=== PATIENT | female | born 1965 | race Caucasian/White ===

== ENCOUNTER 2016-03-19 12:14 | Emergency (ER) | payer MEDICAID ==
[~2016-03-19] VITALS: Wt 78.0 kg
[~2016-03-19 12:14] MED LIST: ALBU18HF INHALATION; FLUT16SP17 NASAL; NAPR-260 PO
[2016-03-19] MEDS ORDERED: predniSONE 20 MG TAB PO STA (14:17)
[2016-03-19] MEDS ORDERED: IPRATROPIUM (NEB) 0.5 MG/2.5 ML AMP INH STA (14:17)
[2016-03-19] MEDS ORDERED: ALBUTEROL 0.5% (NEB) 2.5 MG/0.5 ML AMP INH STA (14:17)
[2016-03-19] MEDS ORDERED: KETOROLAC 30 MG INJ IM STA (14:17)
--- NOTE | 2016-03-19 14:45 | RADRPT ---
PROCEDURE: XR Chest. CLINICAL INDICATION: Asthma exacerbation. TECHNIQUE: AP view of the chest was obtained. COMPARISON: None available FINDINGS: The cardiomediastinal silhouette is within normal limits. The lungs are clear. There are 3 mm nodule s in the left upper lung zone and left mid lung zone, incompletely evaluated. No signs of pleural f luid or pneumothorax are seen. The osseous structures and soft tissues are unremarkable. IMPRESSION: 1. No evidence for active cardiopulmonary disease. 2. 3 mm nodules in the left upper lung zone and left mid lung zone, which are incompletely evaluate d. CT may be helpful for further evaluation. RPTAT: DD .Aayush Menon MD, MD Date Time Electronically viewed and signed by .Aayush Menon MD, on 03/19/2016 14:45 .S/
[2016-03-19] MEDS ORDERED: ALBU8.5H3 INH (15:19)
[2016-03-19] MEDS ORDERED: PRED20TA PO (15:19)
--- NOTE | 2016-03-19 15:23 | ERD ---
ER Documentation Chief Complaint Date/Time DATE: 03/19/16 TIME: 15:20 Chief Complaint COUGH CONGESTION FOR THE PAST FEW DAYS HPI 50-year-old woman presents with cough, congestion, and wheezing. She also has right lateral chest wall pain with cough which is nonradiating and nonexertional. She does have a history of asthma and has been using her albuterol without relief. She denies calf or leg swelling, no fevers or chills , no chest pain, no rash, no vomiting or diarrhea. ROS All systems reviewed and are negative except as per history of present illness. Medications Home Meds Active Scripts Prednisone* (Prednisone*) 20 Mg Tab, 40 MG PO DAILY for 4 Days, TAB Prov:CELINA CARLOS MD 03/19/16 Albuterol Sulfate* (Proair HFA*) 8.5 Gm Hfa.aer.ad, 2 PUFF INH Q6H Y for WHEEZING AND SOB, #1 INHALER Prov:CELINA CARLOS MD 03/19/16 Naproxen* (Naprosyn*) 500 Mg Tablet, 500 MG PO BID Y for PAIN AND/OR INFLAMMATION, #30 TAB Prov:AUDIE MCMANUS PA-C 12/20/15 Fluticasone Propionate* (Fluticasone Propionate* Nasal) 50 Mcg/[place] - 16 Gm [place].susp, 1 SPRAY NASAL DAILY, #1 BOTTLE TO EACH NOSTRIL Prov:AUDIE MCMANUS PA-C 12/20/15 Albuterol Sulfate* (Ventolin HFA*) 18 Gm Hfa.aer.ad, 2 PUFF INHALATION Q4H, #1 INHALER Prov:AUDIE MCMANUS PA-C 12/20/15 Allergies Allergies: Coded Allergies: No Known Allergy (Unverified , 12/20/15) PMhx/Soc Asthma Medical and Surgical Hx: pt denies Surgical Hx Hx Alcohol Use: No Hx Substance Use: No Hx Tobacco Use: No Smoking Status: Never smoker FmHx Family History: No diabetes Physical Exam Vitals Vital Signs Date Time Temp Pulse Resp B/P Pulse Ox O2 Delivery O2 Flow Rate FiO2 03/19/16 16:10 98.2 79 19 128/74 99 Room Air 03/19/16 14:46 78 20 98 21 03/19/16 14:27 Nasal Cannula 2 03/19/16 12:29 97.8 78 20 19/72 98 Physical Exam GENERAL: Well-developed, well-nourished, well-hydrated, in no apparent distress , looks nontoxic in appearance, afebrile HEENT: Moist mucous membranes, pink conjunctiva, no cervical spine tenderness or step-off deformities, no goiter, no jaundice or icterus, extraocular movements intact without pain. No submandibular induration, and no pharyngeal erythema NEURO: Alert and oriented 3, cranial nerves II through XII intact bilaterally, pupils equal round reactive to light, no focal deficits or facial asymmetry, sensation intact distally Strength 5/5 in upper and lower extremities bilaterally CARDIAC: Regular rate and rhythm, no murmurs rubs or gallops LUNGS: Diffuse wheezing bilaterally, no crackles or stridor ABDOMEN: Soft nontender, no guarding, no rigidity, no rebound, no psoas sign no obturator sign. Normoactive bowel sounds SKIN: Warm and dry to touch, no abrasions, contusions, or hematomas, no lacerations, no ecchymosis, no target lesions, and without ulcers EXTREMITIES: No clubbing cyanosis or edema, calves are bilaterally symmetrical, no Homans sign, no popliteal cord sign. Distal pulses equal and bilateral PSYCH: Normal affect without agitation or irritability Results 24 hrs Current Medications Medications (Trade) Dose Ordered Sig/Shweta Route PRN Reason Start Time Stop Time Status Last Admin Dose Admin Albuterol (Proventil 0.5% (Neb)) 10 mg ONCE STAT INH 03/19/16 14:17 03/19/16 14:19 DC 03/19/16 14:41 Ipratropium [place] (Atrovent 0.02% (Neb)) 1 mg ONCE STAT INH 03/19/16 14:17 03/19/16 14:19 DC 03/19/16 14:40 Prednisone (Prednisone) 40 mg ONCE STAT PO 03/19/16 14:17 03/19/16 14:19 DC 03/19/16 14:33 Ketorolac Tromethamine (Toradol) 30 mg ONCE STAT IM 03/19/16 14:17 03/19/16 14:19 DC 03/19/16 14:34 Procedures/MDM I administered albuterol 10 mg via nebulizer, ipratropium 1 mg via nebulizer, prednisone 40 mg p.o., Toradol 30 mg intramuscular injection with good response. Chest X-ray 1V Interpreted by me: Soft Tissue: No acute abnormalities Bones: No acute abnormalities Mediastinum/Cardiac Silhouette/Lungs: No acute abnormalities Repeat pulmonary exam after medications were normal with clear lungs and a respiratory rate of 18 breaths per minute. Differential diagnoses considered, included but not limited to acute coronary syndrome, pulmonary embolism, aortic dissection, abdominal aortic aneurysm, sepsis, stroke, meningitis, encephalitis, pneumonia, appendicitis, cholecystitis , bowel obstruction, pyelonephritis, nephrolithiasis, cystitis, as well as metabolic, hematologic, and electrolyte abnormalities. As well as abscess, cellulitis, fractures, and dislocations. Patient feels much better at this time, and vital signs are normal, symptoms have improved. I did give strict instructions to return to the ED if symptoms continue or worsen, patient will otherwise follow-up with primary care physician. Patient understood instructions and agreed to plan. Departure Diagnosis: Primary Impression: Asthma Asthma severity: moderate persistent Asthma complication type: with acute exacerbation Qualified Code: J45.41 - Moderate persistent asthma with acute exacerbation Additional Impression: Chest wall muscle strain Encounter type: initial encounter Qualified Code: S29.011A - Chest wall muscle strain, initial encounter Condition: Good Patient Instructions: Asthma, Acute (Adult) CELINA CARLOS MD Mar 19, 2016 15:23
[2016-03-19 16:10] VITALS: BP 128/74; PULSE 79; RESP 19; TEMP 98.2
== END 2016-03-19 16:12 | disposition home or self-care (01) ==
LOC: FTE 12:14
DX: J45.41 Moderate persistent asthma with (acute) exacerbation (principal); S29.011A Strain of muscle and tendon of front wall of thorax, initial encounter; X58.XXXA Exposure to other specified factors, initial encounter; Y92.9 Unspecified place or not applicable
CPT/HCPCS: 71010; 94644; 96372; J1885; J7512; Z7502; Z7610

== ENCOUNTER 2016-06-23 16:19 | Emergency (ER) | payer MEDICAID ==
[~2016-06-23] VITALS: Ht 165.1 cm; Wt 73.0 kg
[~2016-06-23 16:19] MED LIST changes: +ALBU8.5H3 INH; +PRED20TA PO
[2016-06-23 16:20] VITALS: Ht 165.1 cm; Wt 73.0 kg
[2016-06-23] MEDS ORDERED: KETOROLAC 30 MG INJ IM STA (17:19)
--- NOTE | 2016-06-23 17:33 | ERD ---
ER Documentation Chief Complaint Date/Time DATE: 06/23/16 TIME: 17:30 Chief Complaint RT SHOULDER PAIN X 10 MONTHS HPI This 50-year-old female who presents the emergency department today complaining of right-sided neck pain and shoulder pain that is been intermittent and ongoing for the past 10 months. 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 States that she took Naprosyn in the past and that helped her. Denies any fevers or chills. Denies any trauma. States she has had images in the past. ROS All systems reviewed and are negative except as per history of present illness. Medications Home Meds Active Scripts Cyclobenzaprine Hcl* (Cyclobenzaprine Hcl*) 10 Mg Tablet, 10 MG PO QHS, #7 TAB Prov:AUDIE MCMANUS PA-C 06/23/16 Acetaminophen* (Tylophen*) 500 Mg Capsule, 1 CAP PO Q6H Y for PAIN AND OR ELEVATED TEMP, #30 CAP Prov:AUDIE MCMANUS PA-C 06/23/16 Naproxen* (Naprosyn*) 500 Mg Tablet, 500 MG PO BID Y for PAIN AND/OR INFLAMMATION, #30 TAB Prov:AUDIE MCMANUS PA-C 06/23/16 Prednisone* (Prednisone*) 20 Mg Tab, 40 MG PO DAILY for 4 Days, TAB Prov:CELINA CARLOS MD 03/19/16 Albuterol Sulfate* (Proair HFA*) 8.5 Gm Hfa.aer.ad, 2 PUFF INH Q6H Y for WHEEZING AND SOB, #1 INHALER Prov:CELINA CARLOS MD 03/19/16 Naproxen* (Naprosyn*) 500 Mg Tablet, 500 MG PO BID Y for PAIN AND/OR INFLAMMATION, #30 TAB Prov:AUDIE MCMANUS PA-C 12/20/15 Fluticasone Propionate* (Fluticasone Propionate* Nasal) 50 Mcg/[place] - 16 Gm [place].susp, 1 SPRAY NASAL DAILY, #1 BOTTLE TO EACH NOSTRIL Prov:AUDIE MCMANUS PA-C 12/20/15 Albuterol Sulfate* (Ventolin HFA*) 18 Gm Hfa.aer.ad, 2 PUFF INHALATION Q4H, #1 INHALER Prov:AUDIE MCMANUS PA-C 12/20/15 Allergies Allergies: Coded Allergies: No Known Allergy (Unverified , 12/20/15) PMhx/Soc Hx Alcohol Use: No Hx Substance Use: No Hx Tobacco Use: No Physical Exam Vitals Vital Signs Date Time Temp Pulse Resp B/P Pulse Ox O2 Delivery O2 Flow Rate FiO2 06/23/16 16:20 99.0 73 16 119/66 98 Physical Exam Const: No acute distress Head: Atraumatic Eyes: Normal Conjunctiva ENT: Normal External Ears, Nose and Mouth. Neck: Full range of motion..~ No meningismus. Right-sided paraspinal tenderness and lower trapezius tenderness to palpation Resp: Clear to auscultation bilaterally Cardio: Regular rate and rhythm, no murmurs Skin: No petechiae or rashes Back: No midline or flank tenderness Ext: No cyanosis, or edema. Right arm and shoulder with no obvious deformity. No effusion. Full active range of motion. Pulses 2+. Distal neurovascularly intact. Neur: Awake and alert Psych: Normal Mood and Affect Results 24 hrs Current Medications Medications (Trade) Dose Ordered Sig/Shweta Route PRN Reason Start Time Stop Time Status Last Admin Dose Admin Ketorolac Tromethamine (Toradol) 30 mg ONCE STAT IM 06/23/16 17:19 06/23/16 17:20 DC 06/23/16 17:27 Procedures/MDM This a 50-year-old female who presents to the emergency department today complaining of some right-sided neck and shoulder pain that goes down into her arm for the past 10 months that is been intermittent. Patient has not been seen at this hospital in the past for this problem however patient indicated that she had had images in the past and did not want any at this time. Patient symptoms at this time is consistent with musculoskeletal strain versus sprain versus muscle spasm. Patient does work cleaning houses. Other differentials to consider are degenerative disc disease in her neck versus tendinopathy in her shoulder. There has been no trauma and have low suspicion for acute fracture dislocation. Patient is afebrile and otherwise well- appearing have low suspicion for septic joint or gout. Patient was given a Toradol injection here in the emergency department as she was requesting something for pain. I will give her a short course of Naprosyn, Tylenol and Flexeril for home. Do not feel the patient would benefit from narcotics given the long duration of symptoms. At this time the patient is stable for discharge and outpatient management. Patient should follow up with their PCP in the next 1-2 days. They may return to the emergency department sooner for any persistent or worsening of symptoms. Patient understood and agreed with the plan. Departure Diagnosis: Primary Impression: Neck pain Additional Impression: Shoulder pain Laterality: right Chronicity: chronic Qualified Code: M25.511 - Chronic right shoulder pain Condition: Fair AUDIE MCMANUS PA-C June 23, 2016 17:33
[2016-06-23] MEDS ORDERED: CYCL-319 PO (17:34)
[2016-06-23] MEDS ORDERED: NAPR-260 PO (17:34)
[2016-06-23] MEDS ORDERED: ACET500C5 PO (17:34)
== END 2016-06-23 18:00 | disposition home or self-care (01) ==
LOC: FTE 16:19
DX: M54.2 Cervicalgia (principal)
CPT/HCPCS: 96372; J1885; Z7502

== ENCOUNTER 2016-09-20 20:06 | Emergency (ER) | payer MEDICAID ==
[~2016-09-20] VITALS: Wt 74.5 kg
[~2016-09-20 20:06] MED LIST changes: +ACET500C5 PO; +CYCL-319 PO
[2016-09-20] MEDS ORDERED: MECLIZINE 12.5 MG TAB PO ONE (22:00)
[2016-09-20 22:15] LABS: URINE BLOOD (Dip) POC Negative (NEGATIVE)
--- NOTE | 2016-09-20 22:44 | RADRPT ---
PROCEDURE: CT HEAD WITHOUT CONTRAST: CLINICAL INDICATION: 50-year-old female . Right-sided headache. COMPARISON: None TECHNIQUE: CT of the head was performed without IV contrast. Dose information: The estimated radiation dose (CTDIvol mGy) for each series in this exam is 41 . The estimated cumulative dose (DLP mGy-cm) is 720 . FINDINGS: Parenchyma: Negative for evidence of acute intracranial hemorrhage, mass effect or large territory i nfarct. Ventricles and extra-axial spaces: Appropriate for age. Visualized paranasal sinuses: Clear. Mastoid air cells: Clear. Bones: No focal abnormality. Additional comment: None. IMPRESSION: Negative for evidence of acute intracranial hemorrhage or mass effect. Cause for headache is not ev ident. RPTAT: HCTS Physician [place] Date Time Electronically viewed and signed by Kaleb Sargent Physician on 09/20/2016 22:43 /
--- NOTE | 2016-09-20 22:45 | ERD ---
ER Documentation Chief Complaint Date/Time DATE: 09/20/16 TIME: 22:41 Chief Complaint right sided head, neck and back pain, work related injury HPI This is a 50-year-old female who presents to the emergency department today complaining of headache, right-sided neck pain and right arm pain for "a long time. States that she took Naprosyn for pain. States that she has some dizziness. Denies any fevers or chills. Denies that this is a work-related injury ROS All systems reviewed and are negative except as per history of present illness. Medications Home Meds Active Scripts Meclizine Hcl* (Antivert*) 12.5 Mg Tab, 12.5 MG PO Q6H Y for DIZZINESS, #20 TAB Prov:AUDIE MCMANUS PA-C 09/20/16 Acetaminophen* (Tylophen*) 500 Mg Capsule, 1 CAP PO Q6H Y for PAIN AND OR ELEVATED TEMP, #20 CAP Prov:AUDIE MCMANUS PA-C 09/20/16 Naproxen* (Naprosyn*) 500 Mg Tablet, 500 MG PO BID Y for PAIN AND/OR INFLAMMATION, #30 TAB Prov:AUDIE MCMANUS PA-C 09/20/16 Tramadol HCl (Tramadol HCl) 50 Mg Tablet, 50 MG PO Q4 Y for PAIN, #20 TAB Prov:AUDIE MCMANUS PA-C 09/20/16 Cyclobenzaprine Hcl* (Cyclobenzaprine Hcl*) 10 Mg Tablet, 10 MG PO QHS, #7 TAB Prov:AUDIE MCMANUSC 06/23/16 Acetaminophen* (Tylophen*) 500 Mg Capsule, 1 CAP PO Q6H Y for PAIN AND OR ELEVATED TEMP, #30 CAP Prov:AUDIE MCMANUSC 06/23/16 Naproxen* (Naprosyn*) 500 Mg Tablet, 500 MG PO BID Y for PAIN AND/OR INFLAMMATION, #30 TAB Prov:AUDIE MCMANUSC 06/23/16 Prednisone* (Prednisone*) 20 Mg Tab, 40 MG PO DAILY for 4 Days, TAB Prov:CELINA CARLOS MD 03/19/16 Albuterol Sulfate* (Proair HFA*) 8.5 Gm Hfa.aer.ad, 2 PUFF INH Q6H Y for WHEEZING AND SOB, #1 INHALER Prov:CELINA CARLOS MD 03/19/16 Naproxen* (Naprosyn*) 500 Mg Tablet, 500 MG PO BID Y for PAIN AND/OR INFLAMMATION, #30 TAB Prov:AUDIE MCMANUS PA-C 12/20/15 Fluticasone Propionate* (Fluticasone Propionate* Nasal) 50 Mcg/[place] - 16 Gm [place].susp, 1 SPRAY NASAL DAILY, #1 BOTTLE TO EACH NOSTRIL Prov:AUDIE MCMANUS PA-C 12/20/15 Albuterol Sulfate* (Ventolin HFA*) 18 Gm Hfa.aer.ad, 2 PUFF INHALATION Q4H, #1 INHALER Prov:AUDIE MCMANUS PA-C 12/20/15 Allergies Allergies: Coded Allergies: No Known Allergy (Unverified , 12/20/15) PMhx/Soc Medical and Surgical Hx: pt denies Medical Hx, pt denies Surgical Hx Hx Alcohol Use: No Hx Substance Use: No Hx Tobacco Use: No Physical Exam Vitals Vital Signs Date Time Temp Pulse Resp B/P Pulse Ox O2 Delivery O2 Flow Rate FiO2 09/20/16 20:20 97.6 65 20 166/76 96 Physical Exam Const: No acute distress Head: Atraumatic Eyes: Normal Conjunctiva. PERRLA. EOM intact ENT: Normal External Ears, Nose and Mouth. Neck: Full range of motion with pain turning neck to the right..~ No meningismus. Right-sided paraspinal pain. No midline tenderness. Resp: Clear to auscultation bilaterally Cardio: Regular rate and rhythm, no murmurs Abd: Soft, non tender, non distended. Normal bowel sounds Skin: No petechiae or rashes Back: No midline or flank tenderness Ext: No cyanosis, or edema pain full active range of motion right arm with pain. Pulses 2+ per distal neurovascularly intact Neur: Awake and alert. Cranial nerves II through XII intact. No gait ataxia. Psych: Normal Mood and Affect Results 24 hrs Laboratory Tests Test 09/20/16 22:20 Bedside Urine pH (LAB) 6.0 Bedside Urine Protein (LAB) Negative Bedside Urine Glucose (UA) Negative Bedside Urine Ketones (LAB) Negative Bedside Urine Blood Negative Bedside Urine Nitrite (LAB) Negative Bedside Urine Leukocyte Esterase (L Negative Current Medications Medications (Trade) Dose Ordered Sig/Shweta Route PRN Reason Start Time Stop Time Status Last Admin Dose Admin Meclizine HCl (Antivert) 25 mg ONCE ONCE PO 09/20/16 22:00 09/20/16 22:01 DC 09/20/16 22:41 Ketorolac Tromethamine (Toradol) 30 mg ONCE STAT IM 09/20/16 22:47 09/20/16 22:48 DC 09/20/16 22:56 DIAGNOSTIC IMAGING REPORT Patient: LINETTE JACOBS : 1965 Age: 50 Sex: F MR #: [id number] DOS: 09/20/16 0000 Ordering MD: AUDIE MCMANUS PA-C Location: [facility] Room/Bed: PROCEDURE: CT HEAD WITHOUT CONTRAST: CLINICAL INDICATION: 50-year-old female . Right-sided headache. COMPARISON: None TECHNIQUE: CT of the head was performed without IV contrast. Dose information: The estimated radiation dose (CTDIvol mGy) for each series in this exam is 41 . The estimated cumulative dose (DLP mGy-cm) is 720 . FINDINGS: Parenchyma: Negative for evidence of acute intracranial hemorrhage, mass effect or large territory infarct. Ventricles and extra-axial spaces: Appropriate for age. Visualized paranasal sinuses: Clear. Mastoid air cells: Clear. Bones: No focal abnormality. Additional comment: None. IMPRESSION: Negative for evidence of acute intracranial hemorrhage or mass effect. Cause for headache is not evident. RPTAT: HCTS Physician [place] Date Time Electronically viewed and signed by Physician [place] on 09/20/2016 22: 43 CS/ CC: AUDIE MCMANUS PA-C Procedures/MDM This 50-year-old female presents emergency department today complaining of right -sided headache in the posterior aspect, neck pain and right arm pain I did see this patient here in the emergency department in June for neck pain and did not do an x-ray at that time. Patient was given Naprosyn at that time. Given patient's persistent complaint of headache and neck pain and associated dizziness I did obtain images. Per the radiology report images of the cervical spine show multilevel mild degenerative disc disease. There is small posterior central disc protrusions at C4 and 5 and C5 and 6 that results in mild central canal stenosis. This may be the source of the patient's neck and arm pain given that she has radicular symptoms. Head CT noncontrast is negative for acute cranial hemorrhage or mass-effect. Patient was also complaining of some dizziness and therefore did obtain a UA UA is negative for infection Patient was given Toradol and meclizine here in the emergency department and pain and dizziness improved. She will be given a prescription for tramadol, Naprosyn, Tylenol, meclizine for home. She was instructed to follow-up with her primary care doctor for referral to transmission specialist or neurologist. At this time the patient is stable for discharge and outpatient management. Patient should follow up with their PCP in the next 1-2 days. They may return to the emergency department sooner for any persistent or worsening of symptoms. Patient understood and agreed with the plan. Departure Diagnosis: Primary Impression: Headache Headache type: unspecified Headache chronicity pattern: episodic headache Intractability: not intractable Qualified Code: R51 - Nonintractable episodic headache, unspecified headache type Additional Impression: Neck pain Condition: AUDIE Yan PA-C Sep 20, 2016 22:45
[2016-09-20] MEDS ORDERED: KETOROLAC 30 MG INJ IM STA (22:47)
--- NOTE | 2016-09-20 23:02 | RADRPT ---
PROCEDURE: CT CERVICAL SPINE WITHOUT CONTRAST CLINICAL INDICATION: 50-year-old female. Neck pain with radicular symptoms. TECHNIQUE: A CT of the cervical spine was performed utilizing thin section axial images from the s kull base through the thoracic inlet. Sagittal and coronal reformatted images were made. The CTDIv ol is 18.1 mGy and the DLP is 361 mGycm. COMPARISON: No prior studies are available for comparison. FINDINGS: Cervical spine is imaged from the skull base to T1-2 Alignment: Normal. Vertebrae: Vertebral bodies and posterior elements are intact without acute fracture. There is multilevel mild degenerative disk disease. C2-C3: Normal. C3-C4: Small posterior central disk osteophyte complex with minimal stenosis. C4-C5: Small posterior central disk protrusion contacts the thecal sac anteriorly. Mild central can al stenosis. Negative for intervertebral foraminal stenosis. Mild left facet arthritis. C5-C6: Small posterior central disk protrusion contacts the thecal sac anteriorly. Mild central can al stenosis. Negative for intervertebral foraminal stenosis. C6-C7: Small superior endplate cyst posterior endplate and C7. Tiny posterior osteophyte. Negative for stenosis. C7-T1: Normal. T1-2: Small posterior disk osteophyte complex with minimal stenosis. Extra-vertebral soft tissues: Normal. Additional comment: None. IMPRESSION: Multilevel mild degenerative disk disease. There are small posterior central disk protrusions at C4 -5 and C5-6 that result in mild central canal stenosis. Please note that noncontrast CT may overesti mate disk protrusions due to epidural venous plexus and MRI is more accurate in evaluating for soft disk disease. Negative for nerve root compression. RPTAT: HCTS Physician [place] Date Time Electronically viewed and signed by Physician [place] on 09/20/2016 23:02 /
[2016-09-20] MEDS ORDERED: TRAM50TA2 PO (23:25)
[2016-09-20] MEDS ORDERED: MECL12.574 PO (23:26)
[2016-09-20] MEDS ORDERED: NAPR-260 PO (23:26)
[2016-09-20] MEDS ORDERED: ACET500C5 PO (23:26)
== END 2016-09-20 23:42 | disposition home or self-care (01) ==
LOC: FTE 20:06
DX: R51 Headache (principal); M54.2 Cervicalgia
CPT/HCPCS: 70450; 72125; 81003; 96372; J1885; Z7502; Z7610

== ENCOUNTER 2016-10-25 13:34 | Emergency (ER) | payer MEDICAID ==
[~2016-10-25] VITALS: Ht 170.2 cm; Wt 74.5 kg
[~2016-10-25 13:34] MED LIST changes: +MECL12.574 PO; +TRAM50TA2 PO
[2016-10-25 14:02] VITALS: Ht 170.2 cm; Wt 74.5 kg
[2016-10-25] MEDS ORDERED: KETOROLAC 30 MG INJ IV STA (15:09)
[2016-10-25] MEDS ORDERED: METOCLOPRAMIDE 10 MG INJ IV ONE (15:30)
[2016-10-25] MEDS ORDERED: MECLIZINE 12.5 MG TAB PO ONE (15:30)
[2016-10-25] MEDS ORDERED: SOD CHLORIDE 0.9% 1,000 ML IV ONE (15:30)
[2016-10-25] MEDS: DIPHENHYDRAMINE 50 MG INJ IV ONE ×2 (15:38→15:48)
[2016-10-25 15:45] LABS: BASOPHIL # 0.1 10^3/ul (0.0-0.1); BASOPHILS % 0.7 % (0.0-2.0); EOSINOPHILS # 0.4 10^3/ul (0.0-0.5); EOSINOPHILS % 4.9 % (0.0-7.0); HEMOGLOBIN 14.3 g/dl (12.0-16.0); LYMPHOCYTES # 3.1 10^3/ul (0.8-2.9); LYMPHOCYTES % 36.4 % (15.0-51.0); MEAN CORPUSCULAR HEMOGLOBIN 29.6 pg (29.0-33.0); MEAN CORPUSCULAR HGB CONC 32.5 g/dl (32.0-37.0); MEAN CORPUSCULAR VOLUME 91.1 fl (82.0-101.0); MEAN PLATELET VOLUME 9.8 fl (7.4-10.4); MONOCYTE # 0.5 10^3/ul (0.3-0.9); MONOCYTES % 6.3 % (0.0-11.0); NEUTROPHIL # 4.4 10^3/ul (1.6-7.5); NEUTROPHILS % 51.1 % (39.0-77.0); PLATELET COUNT 318 10^3/UL (140-415); RED BLOOD COUNT 4.83 10^6/ul (4.20-5.40); RED CELL DISTRIBUTION WIDTH 13.3 % (11.5-14.5); WHITE BLOOD COUNT 8.6 10^3/ul (4.8-10.8)
[2016-10-25 15:47] LABS: ADD UMIC NO; UR ASCORBIC ACID NEGATIVE (NEGATIVE); UR BILIRUBIN (Dip) NEGATIVE (NEGATIVE); UR BLOOD (Dip) NEGATIVE (NEGATIVE); UR CLARITY CLEAR (CLEAR); UR COLOR STRAW (YELLOW); UR GLUCOSE (Dip) NEGATIVE (NEGATIVE); UR KETONES (Dip) NEGATIVE (NEGATIVE); UR LEUKOCYTE ESTERASE (Dip) NEGATIVE Leu/ul (NEGATIVE); UR NITRITE (Dip) NEGATIVE (NEGATIVE); UR TOTAL PROTEIN (Dip) NEGATIVE (NEGATIVE); UR UROBILINOGEN (Dip) NEGATIVE (NEGATIVE)
[2016-10-25 16:23] LABS: ALBUMIN 4.9 g/dl (3.3-4.9); ALBUMIN/GLOBULIN RATIO 1.22; BILIRUBIN,INDIRECT 0.3 mg/dl (0-1.1); BILIRUBIN,TOTAL 0.3 mg/dl (0.2-1.3); CALCIUM 10.2 mg/dl (8.4-10.2); CREATININE 0.65 mg/dl (0.44-1.00); POTASSIUM 4.2 mmol/L (3.5-5.1); TOTAL PROTEIN 8.9 g/dl (6.1-8.1)
[2016-10-25] MEDS ORDERED: TRAM50TA2 PO (17:14)
[2016-10-25] MEDS ORDERED: NAPR-260 PO (17:14)
--- NOTE | 2016-10-25 17:21 | ERD ---
ER Documentation Chief Complaint Date/Time DATE: 10/25/16 TIME: 17:17 Chief Complaint HEADACHE, RIGHT SIDE OF THE FACE PAIN HPI This is a 50-year-old female that presents to the ER with a right-sided headache that started 3 days ago. Pain has been intermittent and severe. Patient has had episodes like this in the past, and has an appointment within her neurologist tomorrow. Patient denies any fevers or chills. She denies any nausea or vomiting. She denies any falls or trauma to the head. She does admit to some minor photophobia. ROS 12 point review of systems was done, all negative except per HPI. Medications Home Meds Active Scripts Naproxen* (Naprosyn*) 500 Mg Tablet, 500 MG PO BID Y for PAIN AND/OR INFLAMMATION, #30 TAB Prov:JOSE LUIS BRAXTON 10/25/16 Tramadol HCl (Tramadol HCl) 50 Mg Tablet, 50 MG PO Q4 Y for PAIN, #20 TAB Prov:JOSE LUIS BRAXTON 10/25/16 Meclizine Hcl* (Antivert*) 12.5 Mg Tab, 12.5 MG PO Q6H Y for DIZZINESS, #20 TAB Prov:AUDIE MCMANUS-C 09/20/16 Acetaminophen* (Tylophen*) 500 Mg Capsule, 1 CAP PO Q6H Y for PAIN AND OR ELEVATED TEMP, #20 CAP Prov:AUDIE MCMANUS-C 09/20/16 Naproxen* (Naprosyn*) 500 Mg Tablet, 500 MG PO BID Y for PAIN AND/OR INFLAMMATION, #30 TAB Prov:AUDIE MCMANUSC 09/20/16 Tramadol HCl (Tramadol HCl) 50 Mg Tablet, 50 MG PO Q4 Y for PAIN, #20 TAB Prov:AUDIE MCMANUS-C 09/20/16 Cyclobenzaprine Hcl* (Cyclobenzaprine Hcl*) 10 Mg Tablet, 10 MG PO QHS, #7 TAB Prov:AUDIE MCMANUS-C 06/23/16 Acetaminophen* (Tylophen*) 500 Mg Capsule, 1 CAP PO Q6H Y for PAIN AND OR ELEVATED TEMP, #30 CAP Prov:AUDIE MCMANUS-C 06/23/16 Naproxen* (Naprosyn*) 500 Mg Tablet, 500 MG PO BID Y for PAIN AND/OR INFLAMMATION, #30 TAB Prov:AUDIE MCMANUS PA-C 06/23/16 Prednisone* (Prednisone*) 20 Mg Tab, 40 MG PO DAILY for 4 Days, TAB Prov:CELINA CARLOS MD 03/19/16 Albuterol Sulfate* (Proair HFA*) 8.5 Gm Hfa.aer.ad, 2 PUFF INH Q6H Y for WHEEZING AND SOB, #1 INHALER Prov:CELINA CARLOS MD 03/19/16 Naproxen* (Naprosyn*) 500 Mg Tablet, 500 MG PO BID Y for PAIN AND/OR INFLAMMATION, #30 TAB Prov:AUDIE MCMANUS PA-C 12/20/15 Fluticasone Propionate* (Fluticasone Propionate* Nasal) 50 Mcg/[place] - 16 Gm [place].susp, 1 SPRAY NASAL DAILY, #1 BOTTLE TO EACH NOSTRIL Prov:AUDIE MCMANUS PA-C 12/20/15 Albuterol Sulfate* (Ventolin HFA*) 18 Gm Hfa.aer.ad, 2 PUFF INHALATION Q4H, #1 INHALER Prov:AUDIE MCMANUS PA-C 12/20/15 Allergies Allergies: Coded Allergies: No Known Allergy (Unverified , 12/20/15) PMhx/Soc Medical and Surgical Hx: pt denies Medical Hx, pt denies Surgical Hx Hx Alcohol Use: No Hx Substance Use: No Hx Tobacco Use: No Smoking Status: Never smoker Physical Exam Vitals Vital Signs Date Time Temp Pulse Resp B/P Pulse Ox O2 Delivery O2 Flow Rate FiO2 10/25/16 14:02 98.0 94 19 115/74 95 Physical Exam GENERAL: The patient is well developed and appropriate for usual state of health , in no apparent distress. HEENT: Atraumatic. Conjunctivae are pink. Pupils equal, round, and reactive to light. Extraocular muscles are grossly intact. Bilateral tympanic membranes are clear with no evidence of erythema, bulging or perforation. No sinus tenderness. NECK: C-spine is soft and supple. There is no cervical lymphadenopathy. CHEST: Clear to auscultation bilaterally. There are no rales, wheezes or rhonchi. HEART: Regular rate and rhythm. No murmurs, clicks, rubs or gallops. EXTREMITIES: Equal pulses bilaterally. There is no peripheral clubbing, cyanosis or edema. No focal swelling or erythema. Full range of motion. Grossly neurovascularly intact. NEURO: Alert and oriented. Cranial nerves II through XII are intact. Motor strength in all 4 extremities with 5/5 strength. Sensation grossly intact. Normal speech and gait. Negative [place]. +2 DTRs. SKIN: There is no apparent rash or petechia. The skin is warm and dry. Result Diagram: 10/25/16 1530 10/25/16 1530 Results 24 hrs Laboratory Tests Test 10/25/16 15:30 White Blood Count 8.610^3/ul Red Blood Count 4.8310^6/ul Hemoglobin 14.3g/dl Hematocrit 44.0% Mean Corpuscular Volume 91.1fl Mean Corpuscular Hemoglobin 29.6pg Mean Corpuscular Hemoglobin Concent 32.5g/dl Red Cell Distribution Width 13.3% Platelet Count 80525^3/UL Mean Platelet Volume 9.8fl Neutrophils % 51.1% Lymphocytes % 36.4% Monocytes % 6.3% Eosinophils % 4.9% Basophils % 0.7% Nucleated Red Blood Cells % 0.0/100WBC Neutrophils # 4.410^3/ul Lymphocytes # 3.110^3/ul Monocytes # 0.510^3/ul Eosinophils # 0.410^3/ul Basophils # 0.110^3/ul Nucleated Red Blood Cells # 0.010^3/ul Erythrocyte Sedimentation Rate 15mm/Hr Urine Color STRAW Urine Clarity CLEAR Urine pH 5.0 Urine Specific [place] 1.010 Urine Ketones NEGATIVEmg/dL Urine Nitrite NEGATIVEmg/dL Urine Bilirubin NEGATIVEmg/dL Urine Urobilinogen NEGATIVEmg/dL Urine Leukocyte Esterase NEGATIVELeu/ul Urine Hemoglobin NEGATIVEmg/dL Urine Glucose NEGATIVEmg/dL Urine Total Protein NEGATIVEmg/dl Sodium Level 145mmol/L Potassium Level 4.2mmol/L Chloride Level 107mmol/L Carbon Dioxide Level 26mmol/L Anion Gap 16 Blood Urea Nitrogen 10mg/dl Creatinine 0.65mg/dl Glucose Level 93mg/dl Calcium Level 10.2mg/dl Total Bilirubin 0.3mg/dl Direct Bilirubin 0.00mg/dl Indirect Bilirubin 0.3mg/dl Aspartate Amino Transf (AST/SGOT) 48IU/L Alanine Aminotransferase (ALT/SGPT) 80IU/L Alkaline Phosphatase 91IU/L Total Protein 8.9g/dl Albumin 4.9g/dl Globulin 4.00g/dl Albumin/Globulin Ratio 1.22 Current Medications Medications (Trade) Dose Ordered Sig/Shweta Route PRN Reason Start Time Stop Time Status Last Admin Dose Admin Sodium Chloride (NS) 1,000 ml @ 1,000 mls/hr Q1H ONCE IV 10/25/16 15:30 10/25/16 16:29 DC 10/25/16 15:40 Ketorolac Tromethamine (Toradol) 30 mg ONCE STAT IV 10/25/16 15:09 10/25/16 15:13 DC 10/25/16 15:39 Metoclopramide HCl (Reglan) 10 mg ONCE ONCE IV 10/25/16 15:30 10/25/16 15:31 DC 10/25/16 15:39 Diphenhydramine HCl (Benadryl) 25 mg ONCE ONCE IV 10/25/16 15:30 10/25/16 15:31 DC Meclizine HCl (Antivert) 25 mg ONCE ONCE PO 10/25/16 15:30 10/25/16 15:31 DC 10/25/16 15:38 Procedures/MDM Differential Diagnosis includes but is not limited to; tension headache, migraine headache, cluster headache, sinus headache, nonspecific febrile headache, trigeminal neurologia, subdural hematoma, subarachnoid bleeding, meningitis, encephalitis. Patient is neurologically intact with no focal neurological deficits. At this time patient has a migraine headache versus trigeminal nerve versus posterior headache. Patient has an appointment with her neurologist tomorrow, which is appropriate specialist. I doubt temporal arteritis, ESR is within normal limits and patient did not have any pain over her temporal artery. I doubt intracranial bleed as she is neurologically intact , and has not had any trauma. She does not say that this is the worst headache of her life. Patient will be sent home with naproxen and tramadol. Patient is to follow-up with her primary care doctor within 1-2 to days return to ER sooner if symptoms worsen. My medical decision making shared with the patient she understands and agrees with plan. Departure Diagnosis: Primary Impression: Headache Condition: Stable Patient Instructions: Migraines and Cluster Headaches Additional Instructions: \Llame al doctor MAANA y roselia rah VITALY PARA DENTRO DE 1-2 GOODSON.Dgale a la secretaria que nosotros le instruimos hacer esta vitaly.Avise o llame si white condicin se empeora antes de la vitaly. Regresa aqui si peor o no mejor. JOSE LUIS BRAXTON Oct 25, 2016 17:20
[2016-10-25 17:38] VITALS: BP 118/68; PULSE 77; RESP 18; TEMP 98.5
== END 2016-10-25 17:50 | disposition home or self-care (01) ==
LOC: E/R 13:34
DX: R51 Headache (principal)
CPT/HCPCS: 80053; 81003; 85025; 85651; 96374; 96375; J1200; J1885; J2765; J7030; Z7502; Z7610

== ENCOUNTER 2017-01-10 10:48 | Emergency (ER) | payer MEDICAID ==
[~2017-01-10] VITALS: Wt 76.9 kg
[2017-01-10] MEDS ORDERED: KETOROLAC 30 MG INJ IM STA (11:56)
--- NOTE | 2017-01-10 11:56 | ERD ---
ER Documentation Chief Complaint Chief Complaint RIGHT SHOULDER/BACK/NECK PAIN X1 YEAR, NO INJURY HPI 51-year-old female, with 3 of a chronic right shoulder pain for a year , according to the patient due to a work injury, presents to the emergency department complaining of worsening of the pain for the last 4 days. Currently the pain is described as dull, rated 6/10, radiated to the neck and the shoulder. Unknown reason for acute exacerbation of the symptoms. Aggravating factors: Overreaching, direct palpation. Current treatment: Known. Denies fevers, chills, no weakness, no tingling. History was given by patient ROS All systems reviewed and are negative except as per history of present illness. Medications Home Meds Active Scripts Hydrocodone/Acetaminophen ([place] 5-325 Tablet) 1 Each Tablet, 1 TAB PO Q6H Y for PAIN, #12 TAB Prov:SLAVA REYES MD 01/10/17 Baclofen* (Baclofen*) 10 Mg Tablet, 10 MG PO TID for MUSCLE SPASMS, #20 TAB Prov:SLAVA REYES MD 01/10/17 Prednisone* (Prednisone*) 20 Mg Tab, 20 MG PO DAILY for 5 Days, TAB Prov:SLAVA REYES MD 01/10/17 Naproxen* (Naprosyn*) 500 Mg Tablet, 500 MG PO BID Y for PAIN AND/OR INFLAMMATION, #30 TAB Prov:JOSE LUIS BRAXTON 10/25/16 Tramadol HCl (Tramadol HCl) 50 Mg Tablet, 50 MG PO Q4 Y for PAIN, #20 TAB Prov:JOSE LUIS BRAXTON 10/25/16 Meclizine Hcl* (Antivert*) 12.5 Mg Tab, 12.5 MG PO Q6H Y for DIZZINESS, #20 TAB Prov:AUDIE MCMANUS PA-C 09/20/16 Acetaminophen* (Tylophen*) 500 Mg Capsule, 1 CAP PO Q6H Y for PAIN AND OR ELEVATED TEMP, #20 CAP Prov:AUDIE MCMANUS PA-C 09/20/16 Naproxen* (Naprosyn*) 500 Mg Tablet, 500 MG PO BID Y for PAIN AND/OR INFLAMMATION, #30 TAB Prov:AUDIE MCMANUS PA-C 09/20/16 Tramadol HCl (Tramadol HCl) 50 Mg Tablet, 50 MG PO Q4 Y for PAIN, #20 TAB Prov:AUDIE MCMANUS PA-C 09/20/16 Cyclobenzaprine Hcl* (Cyclobenzaprine Hcl*) 10 Mg Tablet, 10 MG PO QHS, #7 TAB Prov:AUDIE MCMANUS PA-C 06/23/16 Acetaminophen* (Tylophen*) 500 Mg Capsule, 1 CAP PO Q6H Y for PAIN AND OR ELEVATED TEMP, #30 CAP Prov:AUDIE MCMANUS PA-C 06/23/16 Naproxen* (Naprosyn*) 500 Mg Tablet, 500 MG PO BID Y for PAIN AND/OR INFLAMMATION, #30 TAB Prov:AUDIE MCMANUS PA-C 06/23/16 Prednisone* (Prednisone*) 20 Mg Tab, 40 MG PO DAILY for 4 Days, TAB Prov:CELINA CARLOS MD 03/19/16 Albuterol Sulfate* (Proair HFA*) 8.5 Gm Hfa.aer.ad, 2 PUFF INH Q6H Y for WHEEZING AND SOB, #1 INHALER Prov:CELINA CARLOS MD 03/19/16 Naproxen* (Naprosyn*) 500 Mg Tablet, 500 MG PO BID Y for PAIN AND/OR INFLAMMATION, #30 TAB Prov:AUDIE MCMANUS PA-C 12/20/15 Fluticasone Propionate* (Fluticasone Propionate* Nasal) 50 Mcg/[place] - 16 Gm [place].susp, 1 SPRAY NASAL DAILY, #1 BOTTLE TO EACH NOSTRIL Prov:AUDIE MCMANUS PA-C 12/20/15 Albuterol Sulfate* (Ventolin HFA*) 18 Gm Hfa.aer.ad, 2 PUFF INHALATION Q4H, #1 INHALER Prov:AUDIE MCMANUS PA-C 12/20/15 Allergies Allergies: Coded Allergies: No Known Allergy (Unverified , 01/10/17) PMhx/Soc Hx Alcohol Use: No Hx Substance Use: No Hx Tobacco Use: No Physical Exam Vitals Vital Signs Date Time Temp Pulse Resp B/P Pulse Ox O2 Delivery O2 Flow Rate FiO2 01/10/17 13:27 98.3 69 16 115/70 99 Room Air 01/10/17 10:50 98.0 80 18 118/71 98 Physical Exam Patient is in no acute distress, vital signs stable. Alert and fully oriented. EYES: PERRLA, EOMI, Sclera and conjunctiva appear normal. EARS: Canals clear, tympanic membranes WNL THROAT: Normal oropharynx. NECK: Supple, No lymphadenopathy. Full ROM without pain or tenderness. HEART: RRR, no rubs, murmurs, clicks or gallops. LUNGS: Clear to auscultation. ABDOMEN: Soft, non-tender without masses or hepatosplenomegaly. EXTREMITIES: Right shoulder: Inspection: Normal, no edema, no deformity, no signs of infection. Palpation: Tenderness of suprascapular area. Decreased range of motion for extension. Neurovascular exam intact BACK: Full ROM, no deformity, normal back exam NEURO: Cranial nerves grossly intact, no motor or sensory deficit Results 24 hrs Current Medications Medications (Trade) Dose Ordered Sig/Shweta Route PRN Reason Start Time Stop Time Status Last Admin Dose Admin Ketorolac Tromethamine (Toradol) 30 mg ONCE STAT IM 01/10/17 11:56 01/10/17 11:57 DC 01/10/17 12:27 Procedures/MDM 51-year-old female, with a long history of right shoulder pain, according to the patient due to an injury at work, currently in a Worker's Compensation case , presents to the emergency department complaining of worsening of right shoulder pain. Denies recent trauma. Vital signs stable, physical examination revealed decreased range of motion for extension and tenderness to palpation of the muscles of the suprascapular area. Differential diagnosis include but not limited to sprain, strain, fracture, tendinitis, tendon rupture, adhesive capsulitis. Low suspicion for fracture or septic arthritis. No indication for studies at this time. Physical examination and clinical presentation consistent most likely with right shoulder tendinitis. During the ED course the patient remained stable, no new complaints. The patient received treatment with Toradol presenting overall improvement of the symptoms. Results and clinical impression discussed with patient who agrees with management. The patient is stable to be treated outpatient and will be discharged home with a Rx for [place], ibuprofen and muscle relaxant Some side effects of prescribed medications (headache, rash, nausea, vomiting, diarrhea, drowsiness, habituation, bleeding, hypertension, interactions with other medications) were reviewed. The patient was instructed to follow up with the primary care provider in the next 48h. If symptoms persist, worsen or new symptoms develop, then patient should return to the ED immediately. Instructions explained and given directly by me to the patient in [place]au[place] with acknowledgment and demonstrated understanding. Disclaimer: Inadvertent spelling and grammatical errors are likely due to EHR/ dictation software use and do not reflect on the overall quality of patient care. Also, please note that the electronic time recorded on this note does not necessarily reflect the actual time of the patient encounter. Departure Diagnosis: Primary Impression: Right shoulder tendonitis Condition: Stable Additional Instructions: Muchas bolivar por [facility] para white servicio. Esperamos que en white visita a la nick de emergencia white problema medico haya sido solucionado y que se sienta mucho mejor. Para estar seguros que white mejoria sigue en proceso, le pedimos el favor de hacer rah esteban de seguimiento medico con white doctor primario en los proximos 2-4 matute. Lleve con usted estos documentos y las medicinas recetadas. Si leopoldo sintomas empeoran y no puede lindy a white doctor, por favor regrese a nick de emergencia. En cristopher que usted no tenga un mdico de atencin primaria: Llame al mdico o clnica comunitaria de referencia que aparece abajo rashel las horas de consultorio para hacer rah esteban para que le vean. CLINICAS: [facility] [id number] [facility] [phone] [facility] [phone] [address] [facility] [phone] [facility] [phone] [address] [facility]. [phone] [address] KYLE KUMAR,SLAVA MD Jan 10, 2017 11:56
[2017-01-10] MEDS ORDERED: HYDR-906 PO (12:58)
[2017-01-10] MEDS ORDERED: PRED20TA PO (12:58)
[2017-01-10] MEDS ORDERED: BACL10TA PO (12:58)
[2017-01-10 13:27] VITALS: BP 115/70; PULSE 69; RESP 16; TEMP 98.3
== END 2017-01-10 13:28 | disposition home or self-care (01) ==
LOC: FTE 10:48
DX: M75.81 Other shoulder lesions, right shoulder (principal)
CPT/HCPCS: 96372; J1885; Z7502

== ENCOUNTER 2017-02-26 10:17 | Emergency (ER) | END 2017-02-26 14:45 | disposition home or self-care (01) ==

== ENCOUNTER 2017-04-15 16:05 | Emergency (ER) | END 2017-04-15 21:14 | disposition home or self-care (01) ==

== ENCOUNTER 2017-04-18 10:15 | Emergency (ER) | END 2017-04-18 16:31 | disposition home or self-care (01) ==

== ENCOUNTER 2017-05-18 11:53 | Emergency (ER) | END 2017-05-18 14:45 | disposition home or self-care (01) ==

== ENCOUNTER 2017-11-26 13:01 | Emergency (ER) | END 2017-11-26 18:26 | disposition home or self-care (01) ==